=== PATIENT | female | born 1940 | race Caucasian/White ===

== ENCOUNTER 2017-06-09 10:36 | Emergency (ER) | payer OTHER ==
[~2017-06-09 10:36] MED LIST: ALPR-138 PO; DARV PO; DIPH2%T PO; LISI-590 PO; MAXA10TA2 PO
[2017-06-09 10:38] VITALS: BP 130/97; PULSE 119; RESP 16; TEMP 98.9; O2SAT 97
[2017-06-09 10:45] VITALS: BP 123/80; PULSE 119; RESP 20; O2SAT 98
[2017-06-09 11:03] VITALS: BP 123/80; PULSE 98; RESP 20; O2SAT 98
[2017-06-09] MEDS ORDERED: NYSTAT/DIPHENHY/LIDO MOUTHWASH (Adult) 120ML SWISH-SWAL STA (11:08)
[2017-06-09] MEDS ORDERED: SODIUM CHLOR 0.9% 1000 ML INJ 1,000 ML IV SCH (11:08)
--- NOTE | 2017-06-09 11:14 | PD ---
HPI Chief Complaint: GI Complaint Time Seen by Provider: 10:59 Travel History International Travel<30 days: No Contact w/Intl Traveler<30days: No Traveled to known affect area: No History of Present Illness HPI 77-year-old female to history of hypertension presents for evaluation of nausea , vomiting, mouth pain. She reports that 1 week ago she developed a sore throat. She was seen at her primary care physician's office 4 days ago and started on Augmentin for presumed streptococcal pharyngitis. A strep screening test was not performed at that time. She reports that since using the Augmentin she has been having severe nausea and vomiting. Symptoms are moderate , worse after she takes the antibiotic. She quit using the antibiotic yesterday secondary to the nausea. She reports that she was having diarrhea for 2 days after starting the antibiotic but that has resolved. She reports that she has had difficulty eating or drinking anything secondary to nausea or vomiting. In addition the patient has been having some chills, pain in her mouth, primarily in her lower gumline, burning, worse when eating. Denies rash , cough, congestion, objective fevers, abdominal pain. Denies sick contacts. No other complaints at this time. PFSH Past Medical History Blood Disorders: No Anxiety: Yes Heart Rhythm Problems: No Cancer: No Cardiovascular Problems: Yes High Cholesterol: Yes Chest Pain: No Congestive Heart Failure: No Endocrine: No GERD: No Genitourinary: No Hiatal Hernia: No Hypertension: Yes Immune Disorder: No Musculoskeletal: No Neurologic: Yes Psychiatric: Yes Reproductive: No Respiratory: No Migraines: Yes : 7 Para: 4 Miscarriage: 3 Past Surgical History Appendectomy: Yes Cholecystectomy: Yes Hysterectomy: Yes Social History Alcohol Use: No Tobacco Use: No Substance Use: No Allergies-Medications (Allergen,Severity, Reaction): Coded Allergies: codeine (Unverified Allergy, Severe, 01/16/17) Reported Meds & Prescriptions Reported Meds & Active Scripts Active Zofran (Ondansetron HCl) 4 Mg Tab 4 Mg PO Q6HR PRN Reported Lisinopril 5 Mg Tab 5 Mg PO DAILY Review of Systems Except as stated in HPI: all other systems reviewed are Neg Physical Exam Narrative GENERAL: Well-developed well-nourished female in no acute distress. She was tachycardic in triage. Her heart rate is 95 on examination. SKIN: Warm and dry. HEAD: Atraumatic. Normocephalic. EYES: Pupils equal and round. No scleral icterus. No injection or drainage. ENT: No nasal bleeding or discharge. Mucous membranes pink and moist. There is no oropharyngeal erythema or exudate. No evidence of thrush. No mucous membrane desquamation NECK: Trachea midline. No JVD. CARDIOVASCULAR: Regular rate and rhythm. No murmur appreciated. RESPIRATORY: No accessory muscle use. Clear to auscultation. Breath sounds equal bilaterally. GASTROINTESTINAL: Abdomen soft, non-tender, nondistended. Hepatic and splenic margins not palpable. MUSCULOSKELETAL: No obvious deformities. No clubbing. No cyanosis. No edema. NEUROLOGICAL: Awake and alert. No obvious cranial nerve deficits. Motor grossly within normal limits. Normal speech. PSYCHIATRIC: Appropriate mood and affect; insight and judgment normal. Data Data Last Documented VS Vital Signs Date Time Temp Pulse Resp B/P (MAP) Pulse Ox O2 Delivery O2 Flow Rate FiO2 06/09/17 11:44 94 18 123/80 (94) 100 Room Air 06/09/17 10:38 98.9 Orders Orders Complete Blood Count With Diff (06/09/17 11:08) Comprehensive Metabolic Panel (06/09/17 11:08) Urinalysis - C+S If Indicated (06/09/17 11:08) Iv Access Insert/Monitor (06/09/17 11:08) Ecg Monitoring (06/09/17 11:08) Oximetry (06/09/17 11:08) Ondansetron Inj (Zofran Inj) (06/09/17 11:15) Sodium Chlor 0.9% 1000 Ml Inj (Ns 1000 M (06/09/17 11:08) Sodium Chloride 0.9% Flush (Ns Flush) (06/09/17 11:15) Electrocardiogram (06/09/17 11:08) Magnesium (Mg) (06/09/17 11:08) Group A Rapid Strep Screen (06/09/17 11:08) Influenzae A/B Antigen (06/09/17 11:08) Orthostatic Vital Signs (06/09/17 11:08) Shgg-Qqoc-Krhe Liq (Magic Mouthwash Adul (06/09/17 11:08) C Diff Toxin Pcr (06/09/17 11:09) Strep Culture (Group A) (06/09/17 11:27) Labs Laboratory Tests Test 06/09/17 11:27 06/09/17 12:34 White Blood Count 9.8 TH/MM3 Red Blood Count 4.59 MIL/MM3 Hemoglobin 14.0 GM/DL Hematocrit 40.6 % Mean Corpuscular Volume 88.5 FL Mean Corpuscular Hemoglobin 30.4 PG Mean Corpuscular Hemoglobin Concent 34.4 % Red Cell Distribution Width 13.3 % Platelet Count 375 TH/MM3 Mean Platelet Volume 7.5 FL Neutrophils (%) (Auto) 62.4 % Lymphocytes (%) (Auto) 27.7 % Monocytes (%) (Auto) 8.5 % Eosinophils (%) (Auto) 0.9 % Basophils (%) (Auto) 0.5 % Neutrophils # (Auto) 6.1 TH/MM3 Lymphocytes # (Auto) 2.7 TH/MM3 Monocytes # (Auto) 0.8 TH/MM3 Eosinophils # (Auto) 0.1 TH/MM3 Basophils # (Auto) 0.1 TH/MM3 CBC Comment DIFF FINAL Differential Comment Blood Urea Nitrogen 8 MG/DL Creatinine 0.87 MG/DL Random Glucose 97 MG/DL Total Protein 8.6 GM/DL Albumin 3.8 GM/DL Calcium Level 9.4 MG/DL Magnesium Level 2.2 MG/DL Alkaline Phosphatase 103 U/L Aspartate Amino Transf (AST/SGOT) 20 U/L Alanine Aminotransferase (ALT/SGPT) 27 U/L Total Bilirubin 0.4 MG/DL Sodium Level 137 MEQ/L Potassium Level 3.7 MEQ/L Chloride Level 103 MEQ/L Carbon Dioxide Level 26.1 MEQ/L Anion Gap 8 MEQ/L Estimat Glomerular Filtration Rate 63 ML/MIN Urine Color YELLOW Urine Turbidity CLEAR Urine pH 6.0 Urine Specific [place] 1.022 Urine Protein 30 mg/dL Urine Glucose (UA) NEG mg/dL Urine Ketones 40 mg/dL Urine Occult Blood NEG Urine Nitrite NEG Urine Bilirubin NEG Urine Urobilinogen LESS THAN 2.0 MG/DL Urine Leukocyte Esterase LARGE Urine RBC LESS THAN 1 /hpf Urine WBC 3 /hpf Urine Squamous Epithelial Cells 4 /hpf Urine Transitional Epithelial Cells <1 /hpf Urine Bacteria RARE /hpf Urine Mucus MOD /lpf Microscopic Urinalysis Comment CULT NOT INDICATED MDM Medical Decision Making Medical Screen Exam Complete: Yes Emergency Medical Condition: Yes Medical Record Reviewed: Yes Differential Diagnosis Adverse reaction to Augmentin, dehydration, electrolyte abnormality, gastroenteritis, thrush secondary to Augmentin, C. difficile secondary to Augmentin, Donnie Austin syndrome Narrative Course 77-year-old female with sore throat for 1 week, started on Augmentin for 4 days ago, without splinting nausea, vomiting, burning sensation on the lower gum line for the past few days which is worse when she takes Augmentin. Initially she had diarrhea for 2 days that seems to have resolved secondary to poor oral intake. On examination she has no obvious evidence of thrush, no evidence of Guillen-Austin syndrome. Her abdomen is soft and nontender. Her heart rate was elevated in triage but on examination it is 95. I suspect the patient is having adverse reaction to Augmentin. Plan is for basic lab work, EKG, rapid strep screen, influenza antigen. A C. difficile PCR has been ordered. The patient will be given IV fluids, Zofran, Magic mouthwash. Upon reexamination the patient is feeling improved. She is able to tolerate oral hydration. Orthostatic vital signs reveal a slight increase in heart rate with a steady blood pressure in the 130s over 80s. Her CBC reveals no acute abnormalities. CMP reveals no acute abnormalities. Urinalysis reveals leukocytes, likely contaminant. She was unable to make a stool specimen and C. difficile is unlikely given her lack of diarrhea today. The plan will be to discharge the patient with a short course of Zofran. Recommended slowly advancing diet as tolerated, discontinue the Augmentin. Discussed signs and symptoms that would warrant returning to the emergency room. She is stable for discharge. Diagnosis Primary Impression: Adverse effects of medication Additional Impression: Nausea and vomiting Additional Instructions: Zofran for nausea. Slowly advance diet as tolerated. Discontinue the Augmentin. As discussed return for intractable nausea and vomiting, severe dehydration, worsening abdominal pain, diarrhea. Med/Other Pt SpecificInfo: Prescription(s) given Scripts Ondansetron (Zofran) 4 Mg Tab 4 MG PO Q6HR Y for NAUSEA OR VOMITING, #20 TAB 0 Refills Prov: Lidya Davila MD 06/09/17 Disposition: 01 DISCHARGE HOME Condition: Stable Sony Foster Jun 09, 2017 11:14
[2017-06-09] MEDS ORDERED: ONDANSETRON HCL 4 MG/2 ML VIAL IVP ONE (11:15)
[2017-06-09] MEDS ORDERED: SODIUM CHLORIDE 0.9% FLUSH 10 ML FLUSH IV FLUSH PRN (11:15)
[2017-06-09 11:43] VITALS: RESP 18; O2SAT 99
[2017-06-09 11:44] VITALS: BP 123/80; PULSE 94; RESP 18; O2SAT 100
[2017-06-09 11:55] LABS: AUTOMATED NEUTROPHIL # 6.1 TH/MM3 (1.8-7.7); BASOPHIL # 0.1 TH/MM3 (0-0.2); BASOPHIL % 0.5 % (0.0-2.0); EOSINOPHIL # 0.1 TH/MM3 (0-0.4); EOSINOPHIL % 0.9 % (0.0-4.0); HEMATOCRIT 40.6 % (35.0-46.0); LYMPH % 27.7 % (9.0-44.0); LYMPHOCYTE # 2.7 TH/MM3 (1.0-4.8); MEAN CELL VOLUME 88.5 FL (80.0-100.0); MEAN CORPUSCULAR HEMOGLOBIN 30.4 PG (27.0-34.0); MEAN CORPUSCULAR HGB CONC 34.4 % (32.0-36.0); MEAN PLATELET VOLUME 7.5 FL (7.0-11.0); MONO % 8.5 % (0.0-8.0); MONOCYTE # 0.8 TH/MM3 (0-0.9); NEUT % 62.4 % (16.0-70.0); PLATELET COUNT 375 TH/MM3 (150-450); RED BLOOD COUNT 4.59 MIL/MM3 (4.00-5.30); RED CELL DISTRIBUTION WIDTH 13.3 % (11.6-17.2); WHITE BLOOD COUNT 9.8 TH/MM3 (4.0-11.0)
[2017-06-09 12:17] LABS: ALBUMIN 3.8 GM/DL (3.4-5.0); AST (GOT) 20 U/L (15-37); BICARBONATE 26.1 MEQ/L (21.0-32.0); BLOOD UREA NITROGEN 8 MG/DL (7-18); CALCIUM 9.4 MG/DL (8.5-10.1); CHLORIDE 103 MEQ/L (98-107); CREATININE 0.87 MG/DL (0.50-1.00); GLOMERULAR FILTRATION RATE 63 ML/MIN (>89); GLUCOSE,RANDOM 97 MG/DL (74-106); MAGNESIUM 2.2 MG/DL (1.5-2.5); SODIUM (NA) 137 MEQ/L (136-145)
[2017-06-09 12:21] LABS: ALKALINE PHOSPHATASE 103 U/L (45-117); ALT (GPT) 27 U/L (10-53); TOTAL BILIRUBIN ADULT 0.4 MG/DL (0.2-1.0); TOTAL PROTEIN 8.6 GM/DL (6.4-8.2)
[2017-06-09] MEDS ORDERED: LISI-519 PO (12:21)
[2017-06-09 12:47] LABS: BACTERIA, URINE RARE /hpf; BILIRUBIN, URINE NEG (NEG); BLOOD, URINE NEG (NEG); GLUCOSE,URINE NEG (NEG); KETONE, URINE 40 mg/dL (NEG); MUCUS URINE MOD /lpf (OCC); NITRITE,URINE NEG (NEG); SQUAMOUS EPITHELIAL CELL URINE 4 /hpf (0-5); TRANSITIONAL EPI CELLS, URINE <1 /hpf; URINE COLOR YELLOW (YELLW/STRAW); URINE LEUKOCYTE ESTERASE LARGE (NEG)
[2017-06-09] MEDS ORDERED: ZOFR4TAB PO (12:59)
[2017-06-09] MEDS ORDERED: ACETAMINOPHEN 325 MG TAB PO ONE (13:45)
--- NOTE | 2017-06-10 14:09 | EKG ---
Date Performed: 06/09/2017 Time Performed: 11:32:39 PTAGE: 77 years EKG: Sinus rhythm NORMAL ECG Since PREVIOUS TRACING , no significant change noted PREVIOUS TRACIN04/23/2008 15.52 DOCTOR: Tadeo Umanzor Interpretating Date/Time 06/10/2017 14:07:56
== END 2017-06-09 13:49 | disposition home or self-care (01) ==
LOC: NEPE 10:36
DX: T36.0X5A Adverse effect of penicillins, initial encounter (principal); R11.2 Nausea with vomiting, unspecified; I10 Essential (primary) hypertension; F41.9 Anxiety disorder, unspecified; E78.00 Pure hypercholesterolemia, unspecified; Z79.899 Other long term (current) drug therapy; Z88.5 Allergy status to narcotic agent
CPT/HCPCS: 80053; 81001; 83735; 85025; 87081; 87804; 87880; 93005; 96374; 99284; J2405; J7030